=== PATIENT | female | born 2005 | race Caucasian/White ===

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

== ENCOUNTER → 2024-02-01 13:47 | Outpatient (BNVA) | payer MEDICAID, SELFPAY | PROVIDERS: PCP Nurse Practitioner Family; Visit Provider Nurse Practitioner Family | DX: Z13.6 Encounter for screening for cardiovascular disorders (principal); R00.0 Tachycardia, unspecified; E55.9 Vitamin D deficiency, unspecified; E66.01 Morbid (severe) obesity due to excess calories; R53.83 Other fatigue; Z79.899 Other long term (current) drug therapy; N94.6 Dysmenorrhea, unspecified | CPT/HCPCS: 80053; 80061; 81003; 82306; 82607; 82746; 83036; 83550; 84439; 84443; 84481; 85025 ==

== ENCOUNTER → 2024-02-25 15:16 | Outpatient (BNVA) | payer MEDICAID, SELFPAY | PROVIDERS: PCP Nurse Practitioner Family; Visit Provider Nurse Practitioner Family | DX: N91.2 Amenorrhea, unspecified (principal) | CPT/HCPCS: 81025 ==

== ENCOUNTER → 2024-03-02 09:50 | Outpatient (BNVA) | payer MEDICAID, SELFPAY | PROVIDERS: PCP Nurse Practitioner Family; Visit Provider Nurse Practitioner Family | DX: N92.6 Irregular menstruation, unspecified (principal) | CPT/HCPCS: 81025 ==

== ENCOUNTER → 2024-04-04 10:00 | Outpatient (BNVA) | payer MEDICAID, SELFPAY | PROVIDERS: PCP Nurse Practitioner Family; Visit Provider Nurse Practitioner Family | DX: R56.9 Unspecified convulsions (principal); E66.9 Obesity, unspecified | CPT/HCPCS: 80053; 81025; 83036; 83735; 84439; 84443; 85025 ==

== ENCOUNTER 2024-06-01 06:00 | Outpatient (CLI) | payer MEDICAID, SELFPAY | END 2024-06-01 06:01 | disposition home or self-care (01) | LOC: RAD 07-25 10:11 | PROVIDERS: PCP Nurse Practitioner Family; Visit Provider Nurse Practitioner Family | DX: N93.9 Abnormal uterine and vaginal bleeding, unspecified (principal) | CPT/HCPCS: 81025 ==

== ENCOUNTER → 2024-07-05 08:45 | Outpatient (BNVA) | payer MEDICAID, SELFPAY | PROVIDERS: PCP Nurse Practitioner Family; Visit Provider Nurse Practitioner Women's Health | DX: N92.6 Irregular menstruation, unspecified (principal) | CPT/HCPCS: 81025; 83001; 83002; 83036; 83520; 84402; 84403; 84702 ==

== ENCOUNTER 2024-10-20 22:38 | Emergency (ER) | payer MEDICAID, SELFPAY ==
[2024-10-20 22:44] VITALS: BP 149/100; PULSE 91; RESP 18; TEMP 36.6; O2SAT 98; BMI 37.8
[2024-10-20 23:46] LABS: Basophils # 0.1 10^3/uL (0.0-0.1); Basophils % 0.5 %; Eosinophils # 0.2 10^3/uL (0.0-0.8); Eosinophils % 1.6 %; Hematocrit 40.4 % (36-47); Lymphocytes # 3.3 10^3/uL (1.5-6.5); Mean Corpuscular HGB Conc 31.4 g/dL (30-55); Mean Corpuscular Hemoglobin 28.5 pg (27-33); Mean Corpuscular Volume 90.6 fl (85-98); Mean Platelet Volume 10.5 fL (7.4-10.4); Monocytes # 0.7 10^3/uL (0.2-0.9); Monocytes % 7.1 %; Neutrophils # 5.54 10^3/uL (1.8-8.0); Neutrophils % 56.6 %; Nucleated Red Blood Cells % 0 %; Platelet Count 289 10^3/cmm (157-399); Red Blood Count 4.46 10^6/uL (3.85-5.65); Red Cell Distribution Width 13.2 % (12.1-15.1)
[2024-10-21 00:15] LABS: Alanine Aminotransferase 13 U/L (0-33); Alkaline Phosphatase 146 U/L (35-105); Anion Gap 15.6 (5-19); Aspartate Amino Transferase 14 U/L (0-32); Blood Urea Nitrogen 11 mg/dL (6-20); Calcium 9.3 mg/dL (8.5-10.5); Carbon Dioxide 23 mmol/L (22-29); Chloride 101 mmol/L (98-107); Creatinine Clr Calc Pharmacy 128.8033; Globulin 3.3 g/dL (1.3-4.6); Glomerular Filtration Rate 91.4 mL/min (90-130); Glucose 98 mg/dL (65-115); Osmolality Calculated 281 mOsm/kg (285-295); Potassium 3.6 mmol/L (3.5-5.1); Sodium 136 mmol/L (136-145); Total Bilirubin 0.2 mg/dL (0.15-1.2); Total Protein 7.3 g/dL (6.6-8.7)
--- NOTE | 2024-10-21 00:17 | W.ED.PREGNAN ---
HPI - General: Chief complaint: Vaginal Bleeding Stated complaint: Positive Preg\Bleeding Time Seen by Provider: 10/20/24 23:17 History of Present Illness: 19-year-old female who presents emergency room with vaginal bleeding and concern that she might be . She says she was at least a couple of weeks or a week late on her period. She is having central cramping. No adnexal pain. No nausea or vomiting. No fever Related Data Home Medications Medication Instructions Recorded Confirmed duloxetine 60 mg capsule,delayed mg PO 04/04/24 10/04/24 release gabapentin 300 mg capsule mg PO 04/04/24 10/04/24 hydrocodone 5 mg-acetaminophen 300 1 tab PO BID PRN 06/01/24 10/04/24 mg tablet polyethylene glycol 3350 17 4 g PO DAILY 06/01/24 10/04/24 gram/dose oral powder (Miralax) trazodone 50 mg tablet 25 mg PO DAILY 06/01/24 10/04/24 Previous Rx's Medication Instructions Recorded drospirenone 3 mg-ethinyl 1 tab PO DAILY #28 tabs 07/20/24 estradiol 0.02 mg tablet (LILO (28)) wheelchair #1 ea 08/05/24 Shower Chair See Rx Instructions .Route 08/11/24 .COMPLEX #1 unit Allergies Allergy/AdvReac Type Severity Reaction Status Date / Time Penicillins Allergy Intermediate unknown Verified 10/04/24 08:34 fish oil AdvReac Intermediate ADR-Vomitin Verified 10/04/24 08:34 g Review of Systems Narrative: Constitutional symptoms: Negative except as documented in HPI. Skin symptoms: Negative except as documented in HPI. Eye symptoms: Negative except as documented in HPI. ENMT symptoms: Negative except as documented in HPI. Respiratory symptoms: Negative except as documented in HPI. Cardiovascular symptoms: Negative except as documented in HPI. Gastrointestinal symptoms: Negative except as documented in HPI. Genitourinary symptoms: Negative except as documented in HPI. Musculoskeletal symptoms: Negative except as documented in HPI. Neurologic symptoms: Negative except as documented in HPI. Psychiatric symptoms: Negative except as documented in HPI. Endocrine symptoms: Negative except as documented in HPI. PFSH ED PFSH: Medical History Non-healing skin lesion Skin lesion of scalp Fracture, talus Tick bite New onset seizure Body mass index (BMI) of 40.1 to 44.9 in adult Contraception management Encounter for initial prescription of vaginal ring hormonal contraceptive Menstrual period late Obesity Tachycardia Otitis externa Cerumen impaction Exposure to STD Acute bacterial sinusitis control counseling Vitamin D deficiency Menorrhalgia Pelvic pain Fatigue Medication management Hypertension screen History of unprotected sex Surgical History S/P foot surgery Family History Grandmother Breast cancer Grandfather Colon cancer Denies family history of Ovarian cancer Prostate cancer Diabetes Heart disease Hyperlipidemia Hypertension Uterine cancer Thyroid disease Stroke Social History Smoking and tobacco/nicotine status: current every day tobacco/nicotine user Physical Exam Narrative: EXAM NARRATIVE: General: Alert, no acute distress. Skin: Warm, dry. Head: Normocephalic, atraumatic. Neck: Supple, trachea midline. Eye: Extraocular movements are intact. Ears, nose, mouth and throat: mucosa moist. Cardiovascular: Regular, Normal peripheral perfusion. Respiratory: Lungs are clear to auscultation, respirations are non-labored, breath sounds are equal, Symmetrical chest wall expansion. Gastrointestinal: Soft, mild suprapubic pain, Non distended Musculoskeletal: Normal ROM, no deformity. Neurological: Alert and oriented, No focal neurological deficit observed. Psychiatric: Cooperative, appropriate mood & affect. Course Vital Signs: Vital signs: Vital Signs Temperature 98 F 10/20/24 22:44 Pulse Rate 78 10/21/24 00:19 Respiratory Rate 18 10/20/24 22:44 Blood Pressure 109/70 10/21/24 00:19 Pulse Oximetry 94 10/21/24 00:19 MDM - OB/Uterine Contractions Medical Decision Making Medical decision making: Differential diagnosis including but not limited to and based on the above HPI, review of systems and physical exam: for patient in early with vaginal bleeding and abdominal pain: Spontaneous , threatened . Urinary tract infection. ectopic . Orders placed to evaluate differential diagnosis based on the above differential, HPI and physical exam Lab Review: Laboratory results were reviewed and interpreted by myself the emergency room physician. No leukocytosis. No anemia. No renal failure. Serum quant is negative. I reviewed the patient's medical record. Reexamination: Patient remained stable. No increased work of breathing. No altered mental status. No focal motor deficits. We discussed that if she had been it would have been so early that this is not much different than just a late period. She denies any fevers. No adnexal pain. She has follow-up with her mat sewer. Assessment and plan: Vaginal bleeding - Discharged home - Discussed plan with patient. Answered any questions. - Evaluation and treatment of this problem were appropriate in the emergency setting. Lab Data 10/20/24 23:36 10/20/24 23:36 Laboratory Results WBC 9.80 10^3/uL (4.5-13.0) 10/20/24 23:36 Corrected WBC Cancelled 10/20/24 22:29 RBC 4.46 10^6/uL (3.85-5.65) 10/20/24 23:36 Hgb 12.70 g/dL (12.4-14.8) 10/20/24 23:36 Hct 40.4 % (36-47) 10/20/24 23:36 MCV 90.6 fl (85-98) 10/20/24 23:36 MCH 28.5 pg (27-33) 10/20/24 23:36 MCHC 31.4 g/dL (30-55) 10/20/24 23:36 RDW 13.2 % (12.1-15.1) 10/20/24 23:36 Plt Count 289 10^3/cmm (157-399) 10/20/24 23:36 MPV 10.5 fL (7.4-10.4) H 10/20/24 23:36 Gran % Cancelled 10/20/24 22:29 Neut % (Auto) 56.6 % 10/20/24 23:36 Lymph % (Auto) 34.0 % 10/20/24 23:36 [place] % (Auto) 7.1 % 10/20/24 23:36 Eos % (Auto) 1.6 % 10/20/24 23:36 Baso % (Auto) 0.5 % 10/20/24 23:36 Neut # (Auto) 5.54 10^3/uL (1.8-8.0) 10/20/24 23:36 Lymph # (Auto) 3.3 10^3/uL (1.5-6.5) 10/20/24 23:36 [place] # (Auto) 0.7 10^3/uL (0.2-0.9) 10/20/24 23:36 Eos # (Auto) 0.2 10^3/uL (0.0-0.8) 10/20/24 23:36 Baso # (Auto) 0.1 10^3/uL (0.0-0.1) 10/20/24 23:36 Absolute Gran (auto) Cancelled 10/20/24 22:29 Nucleated RBC % (auto) 0 % 10/20/24 23:36 Nucleated RBCs # 0.0 /100WBC 10/20/24 23:36 Sodium 136 mmol/L (136-145) 10/20/24 23:36 Potassium 3.6 mmol/L (3.5-5.1) 10/20/24 23:36 Chloride 101 mmol/L (98-107) 10/20/24 23:36 Carbon Dioxide 23 mmol/L (22-29) 10/20/24 23:36 Anion Gap 15.6 (5-19) 10/20/24 23:36 BUN 11 mg/dL (6-20) 10/20/24 23:36 Creatinine 0.8 mg/dL (0.5-0.9) 10/20/24 23:36 GFR Calculation 91.4 mL/min (90-130) 10/20/24 23:36 Glucose 98 mg/dL (65-115) 10/20/24 23:36 Calculated Osmolality 281 mOsm/kg (285-295) L 10/20/24 23:36 Calcium 9.3 mg/dL (8.5-10.5) 10/20/24 23:36 Total Bilirubin 0.2 mg/dL (0.15-1.2) 10/20/24 23:36 AST 14 U/L (0-32) 10/20/24 23:36 ALT 13 U/L (0-33) 10/20/24 23:36 Alkaline Phosphatase 146 U/L (35-105) H 10/20/24 23:36 Total Protein 7.3 g/dL (6.6-8.7) 10/20/24 23:36 Albumin 4.0 g/dL (3.5-5.2) 10/20/24 23:36 Globulin 3.3 g/dL (1.3-4.6) 10/20/24 23:36 Ser , Semi-Qnt 1.00 mIU/mL 10/20/24 23:36 Blood Type B Positive 10/20/24 23:24 Rho(D) Type Rh positive 10/20/24 23:24 All radiology interpretation(s) finalized by discharge Discharge Plan Discharge Patient Disposition: Home Clinical Impression: Vaginal bleeding Condition: Stable Prescriptions: No Action polyethylene glycol 3350 [Miralax] 17 gram/dose powder 4 g PO DAILY trazodone 50 mg tablet 25 mg PO DAILY Rx Instructions: at bedtime hydrocodone-acetaminophen 5-300 mg tablet 1 tab PO BID PRN duloxetine 60 mg capsule,delayed release(DR/EC) PO gabapentin 300 mg capsule PO drospirenone-ethinyl estradiol [LILO (28)] 3-0.02 mg tablet 1 tab PO DAILY Qty: 28 0RF (DME) wheelchair See Rx Instructions .Route .MEDSUPPLY Qty: 1 0RF Rx Instructions: As directed Shower Chair See Rx Instructions .ROUTE .COMPLEX Qty: 1 0RF Rx Instructions: Use Shower chair as needed; Discharge Orders: Discharge ED (Routine); Ordered 10/21/24 Ordered By: Rashmi Guevara Referrals: Kalyan Garcia CPNP [Primary Care Provider] - Discharge Diet: Usual diet Discharge Activity: Increase activity as tolerated Patient Instructions: Opioid Safety, Pain Management Activity Restrictions/Additional Instructions: Please follow-up with your mat sewer soon as possible. Also if you develop fever or have worsening bleeding or pain please return to the emergency room or follow-up with your primary provider. Thank you for choosing [facility] for your healthcare needs today. Please realize this is an emergency room and that we are providing you with a medical screening exam and this may not be complete and all inclusive of all the testing and or work up that you may need to determine your ailment or severity of your illness. You have been screened and evaluated and felt safe for discharge. Health conditions do change or evolve sometimes and as such it is important that you follow up with your Primary Doctor to be re checked, 3-5 days is a general good time frame for follow up. You are always welcome to return to the ED for re assessment if your symptoms are worsening or you have new concerns Coding Level of Care Code ED Radial Router Operator for Alina Hernandez
[2024-10-21 00:19] VITALS: BP 109/70; PULSE 78; O2SAT 94
[2024-10-21 00:38] VITALS: BP 111/96; PULSE 62; O2SAT 94
== END 2024-10-21 00:40 | disposition home or self-care (01) ==
PROVIDERS: Physician Assistant; Emergency Provider Emergency Medicine; PCP Registered Nurse
DX: Z03.89 Encounter for observation for other suspected diseases and conditions ruled out (principal); Z72.0 Tobacco use
CPT/HCPCS: 36415; 80053; 84702; 85025; 86900; 99283

== ENCOUNTER → 2025-02-08 08:49 | Outpatient (BNVA) | payer MEDICAID, SELFPAY | PROVIDERS: PCP Registered Nurse; Visit Provider Nurse Practitioner Women's Health | DX: N92.6 Irregular menstruation, unspecified (principal) | CPT/HCPCS: 81025 ==

== ENCOUNTER → 2025-04-12 16:56 | Outpatient (BNVA) | payer MEDICAID, SELFPAY | PROVIDERS: PCP Registered Nurse; Visit Provider Nurse Practitioner Family | DX: N91.2 Amenorrhea, unspecified (principal) | CPT/HCPCS: 81025 ==

== ENCOUNTER → 2025-05-11 15:38 | Outpatient (BNVA) | payer MEDICAID, SELFPAY | PROVIDERS: PCP Registered Nurse; Visit Provider Nurse Practitioner Women's Health | DX: Z12.4 Encounter for screening for malignant neoplasm of cervix (principal) | CPT/HCPCS: 88175 ==